=== PATIENT | female | born 1955 | race Caucasian/White ===

== ENCOUNTER → 2017-06-17 06:03 | Outpatient (CLI) | payer OTHER, SELFPAY ==
--- NOTE | 2017-06-17 18:16 | STRESSREP ---
Stress Test Report Exercise myocardial perfusion stress test. 62-year-old lady with a history of chest pain. Stress protocol: Resting EKG demonstrates normal sinus rhythm with a rate of 63 bpm normal intervals and noted resting blood pressure is 138/74 mmHg. The patient exercised according to the regular Hiren protocol for a total duration of 5 minutes and 45 seconds the maximum heart rate attained was 144 bpm which was 90% of maximum predicted heart rate the maximum workload attained was 7 metabolic equivalents. At rest there were no ST or T-wave changes noted suggest ischemia peak exercise upsloping ST changes were noted with no meet the criteria for ischemia. The resting blood pressure is 138/74 with a peak blood pressure 186/82 mmHg the rate pressure product was 25,200. No clinical angina was noted the test was terminated due to leg fatigue. Myocardial perfusion protocol. 11.7 mCi of technetium 99m sestamibi was injected at rest. The patient exercised according to the Hiren protocol for 5 minutes and 45 seconds attaining 90% maximum predicted heart rate and a workload of 7 metabolic equivalents at peak exercise 33.3 mCi of technetium 99m sestamibi was injected stress images were obtained stress and rest images were reconstructed and compared in the short axis vertical long and horizontal long axis. Gated images were also obtained. Perfusion SPECT analysis: Review of the stress images demonstrate normal uptake of tracer noted in all areas of the myocardium. The resting images similarly demonstrate normal uptake of tracer noted in all areas of the myocardium. No obvious areas of reversibility are noted suggest ischemia no previous infarct is noted. Gated SPECT analysis: The gated ejection fraction is noted to be 79%. Conclusion: Normal pharmacologic myocardial perfusion stress test. Preserved ejection fraction.
--- NOTE | 2017-06-17 18:20 | STRESSREP_ITS ---
Stress Test Report Exercise myocardial perfusion stress test. 62-year-old lady with a history of chest pain. Stress protocol: Resting EKG demonstrates normal sinus rhythm with a rate of 63 bpm normal intervals and noted resting blood pressure is 138/74 mmHg. The patient exercised according to the regular Hiren protocol for a total duration of 5 minutes and 45 seconds the maximum heart rate attained was 144 bpm which was 90 % of maximum predicted heart rate the maximum workload attained was 7 metabolic equivalents. At rest there were no ST or T-wave changes noted suggest ischemia peak exercise upsloping ST changes were noted with no meet the criteria for ischemia. The resting blood pressure is 138/74 with a peak blood pressure 186/ 82 mmHg the rate pressure product was 25,200. No clinical angina was noted the test was terminated due to leg fatigue. Myocardial perfusion protocol. 11.7 mCi of technetium 99m sestamibi was injected at rest. The patient exercised according to the Hiren protocol for 5 minutes and 45 seconds attaining 90% maximum predicted heart rate and a workload of 7 metabolic equivalents at peak exercise 33.3 mCi of technetium 99m sestamibi was injected stress images were obtained stress and rest images were reconstructed and compared in the short axis vertical long and horizontal long axis. Gated images were also obtained. Perfusion SPECT analysis: Review of the stress images demonstrate normal uptake of tracer noted in all areas of the myocardium. The resting images similarly demonstrate normal uptake of tracer noted in all areas of the myocardium. No obvious areas of reversibility are noted suggest ischemia no previous infarct is noted. Gated SPECT analysis: The gated ejection fraction is noted to be 79%. Conclusion: Normal pharmacologic myocardial perfusion stress test. Preserved ejection fraction.
== END ==
PROVIDERS: Family Provider Family Medicine; PCP Family Medicine; Visit Provider Internal Medicine Cardiovascular Disease
DX: R07.9 Chest pain, unspecified (principal)
CPT/HCPCS: 78452; 93017; A9500; A4216